=== PATIENT | male | born 1980 | race African-American/Black ===

== ENCOUNTER 2016-04-16 07:53 | Emergency (ER) | payer OTHER ==
[~2016-04-16] VITALS: Ht 190.5 cm; Wt 106.0 kg
[~2016-04-16 07:53] MED LIST: CIPRO HC OTIC S10 ML LEFT EAR; MEDROL DOSEPAK4 MG PO; OTIPRIO1 ML BOTH EARS; ROBITUSSIN AC,T10 ML PO; ZITHROMAX500 MG PO; ZYRTEC10 M3 PO
[2016-04-16 08:10] VITALS: BP 100/72
[2016-04-16] MEDS ORDERED: MOTRIN800 MG PO (08:25)
[2016-04-16] MEDS ORDERED: CIPRO HC OTIC S10 ML LEFT EAR (08:27)
== END 2016-04-16 08:37 | disposition home or self-care (01) ==
LOC: EME 07:53
DX: H60.92 Unspecified otitis externa, left ear (principal); F17.200 Nicotine dependence, unspecified, uncomplicated
CPT/HCPCS: 99281; 99283

== ENCOUNTER 2016-05-10 09:32 | Emergency (ER) | payer OTHER ==
[~2016-05-10] VITALS: Ht 190.5 cm; Wt 103.6 kg
[~2016-05-10 09:32] MED LIST changes: +MOTRIN800 MG PO
[2016-05-10 09:53] VITALS: BP 129/89
[2016-05-10] MEDS ORDERED: CETRAXAL1 EACH LEFT EAR (10:16)
[2016-05-10] MEDS ORDERED: MOTRIN800 MG PO (10:16)
== END 2016-05-10 10:53 | disposition home or self-care (01) ==
LOC: EME 09:32
DX: H66.92 Otitis media, unspecified, left ear (principal); Z88.8 Allergy status to other drugs, medicaments and biological substances
CPT/HCPCS: 99281; 99284

== ENCOUNTER 2016-09-04 11:56 | Emergency (ER) | payer OTHER ==
[~2016-09-04] VITALS: Ht 190.5 cm; Wt 104.8 kg
[~2016-09-04 11:56] MED LIST changes: +CETRAXAL1 EACH LEFT EAR
[2016-09-04] MEDS ORDERED: FLOXIN OTIC SOLN5 ML RIGHT EAR (12:34)
[2016-09-04] MEDS ORDERED: NAPROSYN500 MG PO (12:34)
[2016-09-04 12:46] VITALS: BP 116/82
== END 2016-09-04 12:47 | disposition home or self-care (01) ==
LOC: EME 11:56
DX: H60.502 Unspecified acute noninfective otitis externa, left ear (principal); Z88.8 Allergy status to other drugs, medicaments and biological substances; F17.200 Nicotine dependence, unspecified, uncomplicated
CPT/HCPCS: 99281; 99283

== ENCOUNTER 2016-09-10 13:09 | Emergency (ER) | payer OTHER ==
[~2016-09-10] VITALS: Ht 190.5 cm; Wt 106.0 kg
[~2016-09-10 13:09] MED LIST changes: +FLOXIN OTIC SOLN5 ML RIGHT EAR; +NAPROSYN500 MG PO
[2016-09-10] MEDS ORDERED: MOTRIN800 MG PO (16:23)
[2016-09-10] MEDS ORDERED: CIPRO HC OTIC S10 ML LEFT EAR (16:23)
[2016-09-10 16:43] VITALS: BP 139/42
== END 2016-09-10 16:46 | disposition home or self-care (01) ==
LOC: EME 13:09
DX: H60.92 Unspecified otitis externa, left ear (principal); Z72.0 Tobacco use
CPT/HCPCS: 99281; 99283

== ENCOUNTER 2016-09-18 11:28 | Emergency (ER) | payer OTHER ==
[~2016-09-18] VITALS: Ht 190.5 cm; Wt 105.2 kg
[2016-09-18] MEDS ORDERED: AMOXICILLIN500 MG PO (13:27)
[2016-09-18] MEDS ORDERED: CIPRO HC OTIC S10 ML BOTH EARS (13:56)
[2016-09-18 14:37] VITALS: BP 129/88
== END 2016-09-18 14:41 | disposition home or self-care (01) ==
LOC: EME 11:28
DX: H60.502 Unspecified acute noninfective otitis externa, left ear (principal); H66.92 Otitis media, unspecified, left ear
CPT/HCPCS: 99281; 99284

== ENCOUNTER 2016-09-18 15:21 | Emergency (ER) | payer OTHER ==
[~2016-09-18 15:21] MED LIST changes: +AMOXICILLIN500 MG PO; +CIPRO HC OTIC S10 ML BOTH EARS
== END 2016-09-18 16:09 | disposition left against medical advice (07) ==
LOC: EME 15:21
DX: H92.09 Otalgia, unspecified ear (principal); Z53.21 Procedure and treatment not carried out due to patient leaving prior to being seen by health care provider

== ENCOUNTER 2016-09-23 17:43 | Emergency (ER) | payer OTHER ==
[~2016-09-23] VITALS: Ht 190.5 cm; Wt 102.6 kg
[2016-09-23] MEDS ORDERED: MOTRIN800 MG PO (20:06)
[2016-09-23] MEDS ORDERED: OFLOXACIN10 ML LEFT EAR (20:06)
[2016-09-23 20:39] VITALS: BP 120/86
== END 2016-09-23 20:39 | disposition home or self-care (01) ==
LOC: EME 17:43
DX: H60.92 Unspecified otitis externa, left ear (principal); F17.200 Nicotine dependence, unspecified, uncomplicated
CPT/HCPCS: 99281; 99283

== ENCOUNTER 2016-12-25 12:59 | Emergency (ER) | payer OTHER ==
[~2016-12-25] VITALS: Ht 190.5 cm; Wt 108.7 kg
[~2016-12-25 12:59] MED LIST changes: +OFLOXACIN10 ML LEFT EAR
[2016-12-25] MEDS ORDERED: MOTRIN800 MG PO (14:12)
[2016-12-25 14:26] VITALS: BP 136/86
== END 2016-12-25 14:27 | disposition home or self-care (01) ==
LOC: EME 12:59
DX: M26.621 Arthralgia of right temporomandibular joint (principal)
CPT/HCPCS: 99281; 99283

== ENCOUNTER 2016-12-27 11:54 | Emergency (ER) | payer OTHER ==
[~2016-12-27] VITALS: Ht 191.8 cm; Wt 109.1 kg
[2016-12-27] MEDS ORDERED: TOBREX5 ML BOTH EYES (12:36)
[2016-12-27 13:04] VITALS: BP 125/82
== END 2016-12-27 13:05 | disposition home or self-care (01) ==
LOC: EME 11:54
DX: H10.9 Unspecified conjunctivitis (principal); F20.9 Schizophrenia, unspecified; F31.9 Bipolar disorder, unspecified
CPT/HCPCS: 99281; 99283

== ENCOUNTER 2017-09-25 12:00 | Inpatient (IN) | payer OTHER ==
[~2017-09-25] VITALS: Ht 190.5 cm; Wt 102.6 kg
[~2017-09-25 12:00] MED LIST changes: +TOBREX5 ML BOTH EYES
[2017-09-25 15:15] LABS: BASOPHIL (%) 0.4 % (0-1); EOSINOPHIL (%) 1.2 % (0-5); EOSINOPHIL COUNT 0.1 K/uL (0-0.3); HEMATOCRIT 42.6 % (38.0-50.0); HEMOGLOBIN 14.1 G/DL (12.5-16.6); IMMATURE GRANULOCYTE (%) 0.3 % (0.0-0.7); LYMPHOCYTE COUNT 2.2 K/uL (1.0-2.8); MCHC 33.1 G/DL (30.0-36.0); MCV 93.6 FL (86-99); MONOCYTE (%) 4.8 % (3-12); MONOCYTE COUNT 0.3 K/uL (0-0.8); NEUTROPHIL (%) 60.3 % (45-76); PLATELET COUNT 229 K/uL (156-360); RBC DIS.WIDTH-CV 14.7 % (11.8-14.6); RBC DIS.WIDTH-SD 50.7 % (39-53); RED BLOOD COUNT 4.55 M/uL (4.00-5.50); WHITE BLOOD COUNT 6.7 K/uL (4.1-10.2)
[2017-09-25 15:25] LABS: CHLORIDE 104 mEq/L (99-109); POTASSIUM 4.1 mEq/L (3.7-5.4); SODIUM 139 mEq/L (136-147)
[2017-09-25 15:26] LABS: GLUCOSE 77 mg/dL (70-99)
[2017-09-25 15:29] LABS: SERUM ETHYL ALCOHOL < 10 mg/dL
[2017-09-25 15:30] LABS: CREATININE 1.1 mg/dL (0.6-1.3); GFR ESTIMATE (CALCULATED) > 59 mL/min/ (58.99-99999)
[2017-09-25 15:31] LABS: UREA NITROGEN (BUN) 8 mg/dL (9-23)
[2017-09-25 18:52] LABS: THC CANNABINOIDS PRESUMPTIVE POSITIVE (50 ng/mL)
[2017-09-25 18:53] LABS: AMPHETAMINE NEGATIVE (500 ng/mL); BARBITURATES NEGATIVE (200 ng/mL); BENZODIAZEPINES NEGATIVE (150 ng/mL); BUPRENORPHINE NEGATIVE (10 ng/mL); COCAINE NEGATIVE (150 ng/mL); METHADONE NEGATIVE (200 ng/mL); METHAMPHETAMINE NEGATIVE (500 ng/mL); OPIATES (MORPHINE) NEGATIVE (100 ng/mL); OXYCODONE NEGATIVE (100 ng/mL); PHENCYCLIDINE NEGATIVE (25 ng/mL); PROPOXYPHENE NEGATIVE (300 ng/mL); TRICYCLIC ANTIDEPRESSANTS NEGATIVE (300 ng/mL)
[2017-09-25 20:24] VITALS: BP 136/91
[2017-09-26 07:58] VITALS: BP 123/76
[2017-09-26] MEDS ORDERED: LITHIUM CARBON600 MG PO (11:49)
[2017-09-26] MEDS ORDERED: LITHIUM CARBON300 MG PO (11:49)
[2017-09-26] MEDS ORDERED: RISPERDAL1 MG PO (11:49)
[2017-09-26] MEDS ORDERED: TERBINAFINE HC250 MG PO (11:49)
[2017-09-26 16:30] VITALS: BP 102/52
[2017-09-27 07:48] VITALS: BP 115/61
[2017-09-27 15:25] VITALS: BP 98/54
[2017-09-28 08:00] VITALS: BP 125/73
[2017-09-28 15:31] VITALS: BP 125/78
[2017-09-29 09:30] VITALS: BP 108/64
[2017-09-29 16:13] VITALS: BP 120/72
[2017-09-30 08:10] VITALS: BP 118/72
[2017-09-30] MEDS ORDERED: RISPERDAL4 MG PO (09:16)
== END 2017-09-30 12:45 | disposition home or self-care (01) | DRG 885 ==
LOC: EME 12:00 → 1WEST 16:18 → EDOF 16:18 → ENRESERV 20:00 → 1WEST 20:13
PROVIDERS: Emergency Medicine
DX: F20.0 Paranoid schizophrenia (principal); R45.851 Suicidal ideations; F16.188 Hallucinogen abuse with other hallucinogen-induced disorder; Z59.0 Homelessness; F11.10 Opioid abuse, uncomplicated; F94.0 Selective mutism; F32.9 Major depressive disorder, single episode, unspecified; F17.200 Nicotine dependence, unspecified, uncomplicated; Z79.899 Other long term (current) drug therapy
CPT/HCPCS: 80048; 80178; 84999; 85025; 90839; 97150 GO; 97166 GO; 99281; 99283; G0480; Q0177

== ENCOUNTER 2017-10-13 13:50 | Emergency (ER) | payer OTHER ==
[~2017-10-13] VITALS: Ht 190.5 cm; Wt 100.0 kg
[~2017-10-13 13:50] MED LIST changes: +LITHIUM CARBON300 MG PO; +LITHIUM CARBON600 MG PO; +RISPERDAL1 MG PO; +RISPERDAL4 MG PO; +TERBINAFINE HC250 MG PO
[2017-10-13] MEDS ORDERED: BENADRYL25 MG PO (15:07)
[2017-10-13] MEDS ORDERED: PREDNISONE20 MG PO (15:07)
[2017-10-13] MEDS ORDERED: KENALOG,ARISTOC80 G1 TP (15:07)
[2017-10-13 15:16] VITALS: BP 112/76
== END 2017-10-13 15:17 | disposition home or self-care (01) ==
LOC: EME 13:50
DX: T78.40XA Allergy, unspecified, initial encounter (principal); Z88.8 Allergy status to other drugs, medicaments and biological substances
CPT/HCPCS: 99281; 99284